=== PATIENT | female | born 1935 | race Caucasian/White ===

== ENCOUNTER 2019-01-03 09:06 | Inpatient (IN) ==
--- NOTE | 2018-12-02 13:59 | Anesthesiology Consultation ---
Date of Service December 02, 2018 Assessment & Plan (1) Encounter for pre-operative examination: Plan: - Possible difficult intubation due to anatomy - PCP= 12/17/18= A1C in 03/2018 was 6.2. PCP states "borderline A1C: monitor perioperative blood sugar.. "cleared" for surgery. Moderate risk for the cardiac event due to age, hx of HTN, BMI of 27." Chart Review Chart Review: Acceptable Risk for Surgery and Patient seen in Pre Admission Testing Teaching & Discussion Pre-Anesthesia Teaching/Discussion Notes: Instructed NPO after midnight before surgery,except medications with 15 cc of water. Medication instructions provided according to the PAT guidelines. History Surgery Operation Date: 01/03/19 12:30 Proposed Procedures p Right Total Knee Arthroplasty - Babar Medley, Height/Weight Height: 5 ft 4 in Weight: 69.1 kg Allergies Allergy/AdvReac Type Severity Reaction Status Date / Time morphine AdvReac Headache Verified 11/29/18 10:07 Medications Home Medications Medication Instructions Recorded Confirmed Last Taken Jarrodophiuslus 1 dose PO QAM 11/29/18 11/29/18 Unknown amitriptyline 25 mg PO HS 11/29/18 11/29/18 Unknown ascorbic acid (vitamin C) [Vitamin 1,000 mg PO QAM 11/29/18 11/29/18 Unknown C] atenolol 50 mg PO QAM 11/29/18 11/29/18 Unknown cholecalciferol (vitamin D3) 2,000 unit PO QAM 11/29/18 11/29/18 Unknown [Vitamin D3] furosemide [Lasix] 20 mg PO DAILY PRN 11/29/18 11/29/18 Unknown levothyroxine 75 mcg PO QAM 11/29/18 11/29/18 Unknown lisinopril 20 mg PO QPM 11/29/18 11/29/18 Unknown lysine 500 mg PO QAM 11/29/18 11/29/18 Unknown magnesium 250 mg PO HS 11/29/18 11/29/18 Unknown multivitamin 1 tab PO QAM 11/29/18 11/29/18 Unknown omeprazole 40 mg PO BID 11/29/18 11/29/18 Unknown prednisone 20 mg PO QAM 11/29/18 11/29/18 Unknown sertraline 50 mg PO QAM 11/29/18 11/29/18 Unknown sucralfate 1 g PO BID 11/29/18 11/29/18 Unknown turmeric root extract 500 mg PO QAM 11/29/18 11/29/18 Unknown Past Medical History Medical History Anemia Anxiety Deep vein thrombosis B/L LE PER PT; UE PER PCP NOTE (2016) S/P ANTICOAGULATION X SHORT PERIOD OF TIME; CURRENT IVC FILTER Depression GERD (gastroesophageal reflux disease) CONTROLLED Hearing deficit History of breast cancer S/P B/L MASTECTOMY History of fall LEFT 7TH/8TH RIB FRACTURES + L1 COMPRESSION FRACTURE S/P MECHANICAL FALL 10/2018- SYMPTOMS SIGNIFICANTLY IMPROVED PER 12/02/18 PAT EVALUATION History of gastric ulcer 2016 Hypertension Hypothyroidism Osteoarthritis PMR (polymyalgia rheumatica) CHRONICALLY ON PREDNISONE 20MG DAILY Poor historian Past Surgical History Surgical History History of appendectomy History of bilateral mastectomy History of breast biopsy History of colonoscopy History of surgery FACIAL NERVE SURGERY X 3 Past Anesthesia History No Hx of Anesthesia Complications and No Family Hx of Anesthesia Complications History of PONV No Motion Sickness Screening History of Motion Sickness: No Social History Smoking Status: Never smoker Do You Dip or Chew Tobacco: No Hx Alcohol Use: No Hx Substance Use: No substance use type: does not use Exercise / Class Metabolic Activity III < 4 Walking/Shop/Light housework (USES WALKER PRN) Review of Systems Patient denies chest pain, shortness of breath, cough, wheezing, palpitations. Physical Exam Vital Signs VITALS BP 126/71 P 70 TEMP 98.7 SP02 95%RA RESP 16 PHYSICAL Full neck and c-spine range of motion. Full TMJ range of motion. TMD 2.5 finger breaths Mallampati Score 4 Dentition: intact Lungs: clear throughout to auscultation Cardiac: regular rate and rhythm, I/ systolic murmur Spine: normal Carotid arteries: negative bruit Extremities: no edema Testing Electrocardiogram Date: 11/21/18 SR at 65bpm. Chest X-Ray Date: 12/02/18 Atherosclerosis of the aortic arch. Cardiac silhouette enlarged. Heterogeneity of lung parenchyma. Lungs and pleural spaces clear. Degenerative changes of the thoracic spine. Multiple old bilateral rib fractures. Anterior wedging deformity of one of the midthoracic vertebral bodies (11/16 mechanical fall injury- PCP treating conservatively). IVC filter in place. Echocardiogram Date: 11/25/18 EF 55-60%. Probably mild cLVH. Mild AI. Poor subendocardial delineation/limited study. Other Testing 48 hour Holter report= 11/25/18= no significant symptomatic tachy or bradyarrhythmias noted. Predominant rhythm sinus rhythm ranging from 45-101 bpm. Small amount of ventricular ectopy 4.2% of the entire recording. Rare SVT. "Asymptomatic." Laboratory Results 12/02/18 14:41 12/02/18 14:41 Blood Type A Positive 12/02/18 14:41 Antibody Screen NEGATIVE 12/02/18 14:41 PT 10.0 Seconds (9.0-12.0) 12/02/18 14:41 INR 1.0 (0.9-1.1) 12/02/18 14:41 APTT 26.4 Seconds (21.0-31.0) 12/02/18 14:41
--- NOTE | 2018-12-02 14:03 | PAT Medication Instructions ---
Medication Instructions Date of Service December 02, 2018 Home Medications Jarrodophiuslus 1 dose PO QAM amitriptyline 25 mg PO HS ascorbic acid (vitamin C) [Vitamin 1,000 mg PO QAM atenolol 50 mg PO QAM cholecalciferol (vitamin D3) 2,000 unit PO QAM furosemide [Lasix] 20 mg PO DAILY PRN levothyroxine 75 mcg PO QAM lisinopril 20 mg PO QPM lysine 500 mg PO QAM magnesium 250 mg PO HS multivitamin 1 tab PO QAM omeprazole 40 mg PO BID prednisone 20 mg PO QAM sertraline 50 mg PO QAM sucralfate 1 g PO BID turmeric root extract 500 mg PO QAM STOP taking 2 weeks before surgery (or as soon as possible if surgery is within 2 weeks) turmeric root extract 500 mg PO QAM DO NOT take the morning of surgery Jarrodophiuslus probiotic 1 dose PO QAM ascorbic acid (vitamin C) [Vitamin 1,000 mg PO QAM cholecalciferol (vitamin D3) 2,000 unit PO QAM furosemide [Lasix] 20 mg PO DAILY PRN lysine 500 mg PO QAM multivitamin 1 tab PO QAM sucralfate 1 g PO BID Take morning of surgery With a small sip of water, OTHERWISE NOTHING TO EAT OR DRINK AFTER MIDNIGHT: atenolol 50 mg PO QAM levothyroxine 75 mcg PO QAM omeprazole 40 mg PO BID prednisone 20 mg PO QAM sertraline 50 mg PO QAM Take evening before surgery amitriptyline 25 mg PO HS furosemide [Lasix] 20 mg PO DAILY PRN (if needed) lisinopril 20 mg PO QPM magnesium 250 mg PO HS omeprazole 40 mg PO BID sucralfate 1 g PO BID Other Notes If you have any questions please call us at [phone] or [phone] or [phone] or [phone]
--- NOTE | 2018-12-02 15:05 | XRay Report ---
XR chest Pre-admission PA/Lat CLINICAL HISTORY: 83 years-old Female presenting with preoperative assessment, asymptomatic. TECHNIQUE: PA and lateral views of the chest were obtained. COMPARISON: None. FINDINGS: Atherosclerosis of the aortic arch. Cardiac silhouette enlarged. Heterogeneity of lung parenchyma. Debra ngs and pleural spaces clear. Degenerative changes of the thoracic spine. Multiple old bilateral rib fractures. Anterior wedging deformity of one of the midthoracic vertebral bodies. IVC filter in place . IMPRESSION: 1. Cardiomegaly. Otherwise no acute cardiopulmonary disease. 2. Age-indeterminate compression deformity of one of the mid thoracic vertebral bodies. Correlate wi th point tenderness. Electronically signed by: Elijah Samson M.D. 12/02/2018 3:04 PM
[2018-12-02 15:15] LABS: Basophils # (auto) 0.01 K/uL (0-0.2); Basophils % (auto) 0.1 %; Hematocrit (blood only) 37.4 % (37-47); Hemoglobin 12.3 g/dL (12.0-16.0); Immature Granulocytes # (auto) 0.03 K/uL (0.00-0.02); Immature Granulocytes % (auto) 0.4 %; Lymphocytes # (auto) 0.71 K/uL (1.2-3.4); Mean Corpuscular Hgb Conc 32.9 g/dL (32-36); Mean Corpuscular Volume 97.9 fL (80-100); Mean Platelet Volume 11.2 fL (7.4-10.4); Monocytes # (auto) 0.36 K/uL (0.11-0.59); Monocytes % (auto) 4.6 %; Neutrophils # (auto) 6.76 K/uL (1.4-6.5); Neutrophils % (auto) 85.9 %; Platelet Count 202 K/uL (130-400); RDW Coefficient of Variation 13.5 % (11.5-14.5); RDW Standard Deviation 48.5 fL (36.4-46.3); Red Blood Count 3.82 M/uL (4.2-5.4); White Blood Count 7.87 K/uL (4.8-10.8)
[2018-12-02 15:22] LABS: BUN Creatinine Ratio 21.9 (10-20); Calcium 8.8 mg/dl (8.5-10.1); Creatinine Clr Calc Pharmacy 46.2 ml/min; Est GFR (African American) 72.4; Est GFR (Non-African American) 62.5; Potassium 4.3 mmol/L (3.5-5.1)
[2018-12-02 15:24] LABS: Partial Thromboplastin Time 26.4 Seconds (21.0-31.0)
--- NOTE | 2019-01-02 20:56 | History & Physical Report ---
Date of Service January 02, 2019 Assessment & Plan (1) Osteoarthritis of right knee: We will proceed with a right total knee arthroplasty. She does have an IVC filter placed for blood clots in her legs. She is unable to take any anticoagulants because of peptic ulcer disease. She is aware of the risks with the procedure. Will use mechanical DVT prophylaxis postoperatively. She will be kept in the hospital for postoperative medical management. She would like to be discharged to an inpatient rehab facility. Present on Admission?: Yes History of Present Illness Chief Complaint: Primary osteoarthritis of the right knee Primary Care Provider: Deobrah RashadBrandon Oj Alvarez is a pleasant 83-year-old female from the [facility]. She has been having chronic increasing right knee pain. She has a very difficult time ambulating because of her knee and it is really affecting her quality of life. We have talked extensively about knee replacement surgery with her and her family. We talked mostly about her age and the risks of the procedure. Her knee pain is affecting her quality of life enough that she would like to proceed. Allergies Allergy/AdvReac Type Severity Reaction Status Date / Time morphine AdvReac Headache Verified 11/29/18 10:07 Home Medications Home Medications Medication Instructions Recorded Confirmed Type Jarrodophiuslus 1 dose PO QAM 11/29/18 11/29/18 History amitriptyline 25 mg PO HS 11/29/18 11/29/18 History ascorbic acid (vitamin C) [Vitamin 1,000 mg PO QAM 11/29/18 11/29/18 History C] atenolol 50 mg PO QAM 11/29/18 11/29/18 History cholecalciferol (vitamin D3) 2,000 unit PO QAM 11/29/18 11/29/18 History [Vitamin D3] furosemide [Lasix] 20 mg PO DAILY PRN 11/29/18 11/29/18 History levothyroxine 75 mcg PO QAM 11/29/18 11/29/18 History lisinopril 20 mg PO QPM 11/29/18 11/29/18 History lysine 500 mg PO QAM 11/29/18 11/29/18 History magnesium 250 mg PO HS 11/29/18 11/29/18 History multivitamin 1 tab PO QAM 11/29/18 11/29/18 History omeprazole 40 mg PO BID 11/29/18 11/29/18 History prednisone 20 mg PO QAM 11/29/18 11/29/18 History sertraline 50 mg PO QAM 11/29/18 11/29/18 History sucralfate 1 g PO BID 11/29/18 11/29/18 History turmeric root extract 500 mg PO QAM 11/29/18 11/29/18 History Past Med/Surg History Medical History Anemia Anxiety Deep vein thrombosis B/L LE PER PT; UE PER PCP NOTE (2016) S/P ANTICOAGULATION X SHORT PERIOD OF TIME; CURRENT IVC FILTER Depression GERD (gastroesophageal reflux disease) CONTROLLED Hearing deficit History of breast cancer S/P B/L MASTECTOMY History of fall LEFT 7TH/8TH RIB FRACTURES + L1 COMPRESSION FRACTURE S/P MECHANICAL FALL 10/2018- SYMPTOMS SIGNIFICANTLY IMPROVED PER 12/02/18 PAT EVALUATION History of gastric ulcer 2016 Hypertension Hypothyroidism Osteoarthritis PMR (polymyalgia rheumatica) CHRONICALLY ON PREDNISONE 20MG DAILY Poor historian Surgical History History of appendectomy History of bilateral mastectomy History of breast biopsy History of colonoscopy History of surgery FACIAL NERVE SURGERY X 3 Social History Preferred Language: Azerbaijani Communication Ability: Effective Pony Roll Finisher Required: No Beliefs That Will Affect Care: Judaism Current Living Situation Comment: [facility] Other Information That Helps Us Care for You: No Feels Safe at Home: Yes Safety Concerns: Feels Safe At This Time Smoking Status: Never smoker Hx Alcohol Use: No Hx Substance Use: No Review of Systems All systems reviewed & are unremarkable except as noted in HPI & below Physical Exam 2 Constitutional: WD/WN, vitals as above Eyes: PERRL, conjunctivae normal, anicteric sclerae ENMT: external ear and nose normal, oropharynx normal Neck: trachea midline, no thyromegaly Respiratory: normal respiratory effort Cardiovascular: RRR, no murmur, no edema Gastrointestinal (Abdomen): normal bowel sounds, soft, nontender, no hepatosplenomegaly Musculoskeletal: On physical examination of the right knee there is a trace effusion. There is near full range of motion and no evidence of instability. There is significant tenderness palpation along the medial and lateral joint lines and over the distal femoral condyles. Psychiatric: A+Ox3, euthymic affect Results & Data Diagnostic Findings Radiographs of the right knee demonstrate advanced osteoarthritis with joint space narrowing osteophyte formation and [id number] articulation.
[~2019-01-03 09:06] MED LIST: ACETAMINOPHEN 500 MG TAB PO SCH; BUPIVACAINE 0.5 % 5 MG/1 ML PF 10ML VIAL ONE; CEFAZOLIN 2000MG 2,000 MG/15 ML SYR IV SCH; FAMOTIDINE 20 MG TAB PO SCH; GABAPENTIN 300 MG PO SCH; LR 500ML BOLUS, THEN 15ML/HR IV SCH; LR 60ML/HR IV SCH; ROPIVACAINE 0.5% 5 MG/ML 30 ML VIAL ONE; ROPIVACAINE 0.5% HCL/PF 150 MG, BUPIVACAINE 0.5% MPF 30 ML, EPINEPHrine 30MG/30ML (OR U... INFIL SCH; TRANEXAMIC ACID 1,000 MG **IV Pre-op IV SCH
--- NOTE | 2019-01-03 09:47 | History & Physical Bridge Note ---
Date of Service January 03, 2019 History & Physical Bridge Note I have examined the patient, reviewed the History & Physical and in the interval since the performance of the History & Physical I have noted the following changes of clinical significance: no changes noted
[2019-01-03] MEDS ORDERED: ORTHO JOINT ANESTHETIC ONE (10:19)
[2019-01-03] MEDS ORDERED: POVIDONE-IODINE OP SOLN 30 ML BTL ONE (10:19)
[2019-01-03] MEDS ORDERED: MIDAZOLAM HCL 1 MG/ML 2ML VIAL ONE ×2 (11:07→11:08)
[2019-01-03] MEDS: TRANEXAMIC ACID 1,000 MG **IV Intra-op IV SCH (11:33)
--- NOTE | 2019-01-03 12:47 | Operative Report ---
Post Operative Report Pre & Post Diagnosis Operation Date: 01/03/19 11:30 Pre-Op Diagnosis: Right Knee Degenerative Joint Disease Post-Op Diagnosis: Right Knee Degenerative Joint Disease Procedure Operation Date: 01/03/19 11:30 Actual Procedures p Right Total Knee Arthroplasty, Cemented(Right) - Babar Medley DO Surgeon Babar Medley DO Family Intervention Specialist Babar Barry PAC Estimated Blood Loss 20 Findings Consistent with Post-Op Diagnosis Specimens Right femoral and tibial bone Complications none Disposition Disposition: Recovery Room Indications Kim is a pleasant 83-year-old female who is been dealing with chronic increasing right knee pain. X-rays and clinical examination have been diagnostic for primary osteoarthritis of the right knee. Her knee pain has been debilitating. She is been downgraded to a wheelchair because of the knee. After extensive discussions with her and her family regarding her age, she elected to proceed with a right total knee arthroplasty. Description of Procedure Implants used: I used a [employer] Vanguard total knee arthroplasty system with a size 70 femur, 67 tibia, 28 patella, and a size 10 PS plus polyethylene bearing. All components were cemented in place with Palacos G cement. The patient arrived [facility] for the above procedure. There were seen in the preoperative holding area and the operative extremity was identified and signed. There were given a preoperative antibiotic, a spinal anesthetic and an adductor nerve block. There were taken back to the operating room and laid on the table in supine position. There were given basic sedation. The operative knee was then prepped and draped in sterile fashion. A timeout was done, and the patient and the operative extremity was properly identified. A midline incision was made directly over the patella. Dissection was taken down to the extensor mechanism. A subvastus arthrotomy was used. The medial retinaculum was released and the fat pad was mostly left intact. The knee was flexed and the ACL, PCL, and meniscus were removed. A drill was sent down the center of the femoral canal followed by an intramedullary ghazala. Off that ghazala a distal femoral cutting block was placed. 9 mm was resected off the distal femur at 5 of valgus. A posterior referencing AP sizing guide was then placed on the distal femur. The femur measured to be a size 70. 2 drill holes were placed in 3 of external rotation. A 4-in-1 cutting block was then impacted into place. Anterior posterior and chamfer cuts were then made. The posterior stabilizing box guide was then impacted into place and the box was resected for the posterior stabilizing component. The proximal tibia was then exposed. A drill was sent down the center of the tibial canal followed by an intramedullary ghazala. Off that ghazala a proximal tibial resection guide was placed. The proximal tibia was then resected. The tibia measured to be a size 67. The tibial plate was then placed in the appropriate rotation and the tibia was punched. The posterior aspect of the knee was then opened up and any additional meniscus fragments and osteophytes were removed. Trial components were then placed. I used a size 10 PS plus polyethylene insert. The knee was brought through a full range of motion and felt to be stable. The patella was then everted and 8 mm was resected off the posterior aspect of the patella. The patella measured to be a size 28. 3 peg holes were then drilled. A trial patella was placed. The knee was once again brought through a full range of motion and felt to be stable. Trial components were then removed. The surrounding soft tissues were injected with 100 cc of an orthopedic pain control cocktail. All components were then cemented into place with Palacos G cement. The final polyethylene insert was then snapped into place and the anterior bar was locked. Once cement was dry the tourniquet was deflated. Hemostasis was obtained. A dilute betadyne lavage was then done for 3 minutes. The joint was then irrigated with normal saline solution. The subvastus arthrotomy was then closed with #1 Vicryl suture. The skin was closed with 2-0 Vicryl, 3-0V lock suture, and amira. A soft compressive dressing was placed. The patient was then transferred to a hospital bed and taken to the postanesthesia care unit in stable condition. They tolerated the procedure well. I attest to the content of the Intraoperative Record and any orders documented therein. Any exceptions are noted below.
--- NOTE | 2019-01-03 13:45 | XRay Report ---
XR knee RT 2V routine CLINICAL HISTORY: Surgical Post Op postoperative evaluation COMPARISON: None. DISCUSSION: Anatomic alignment post total right knee arthroplasty. Good contact between prosthetic an d underlying bone. Expected soft tissue postoperative change. IMPRESSION: Anatomic alignment post total right knee arthroplasty. The above report was generated using voice recognition software. It may contain grammatical, syntax or spelling errors. Electronically signed by: Romaine Alfaro M.D. 01/03/2019 1:44 PM
--- NOTE | 2019-01-03 13:55 | Anesthesiology Progress Note ---
Date of Service January 03, 2019 Anesthesia Post Procedure Vital Signs Vital Signs: Temp Pulse Pulse Resp BP Pulse Ox 01/03/19 13:50 60 15 119/56 L 98 01/03/19 13:40 36.3 C L 59 L 15 119/59 L 98 01/03/19 13:30 57 L 14 125/58 L 100 01/03/19 13:20 59 L 15 141/60 H 100 01/03/19 13:14 36.3 C L 62 16 156/73 H 100 01/03/19 10:27 37 C 56 L 20 151/54 H 97 Pain Intensity Right Knee: Pain Intensity: 7 Notes Mental Status: alert / awake / arousable and participated in evaluation Patient Amnestic to Procedure: Yes Nausea / Vomiting: adequately controlled Pain: adequately controlled Airway Patency, RR, SpO2: stable & adequate BP & HR: stable & adequate Hydration State: stable & adequate Neuraxial Anesthesia: was administered and sensory block is resolving Anesthetic Complications: no major complications apparent
[2019-01-03] MEDS ORDERED: HYDROmorphone INJ 0.5 MG/0.5 ML SYR IV PRN (14:34)
[2019-01-03] MEDS ORDERED: METOCLOPRAMIDE HCL INJ 5 MG/ML 2 ML VIAL IV PRN (14:34)
[2019-01-03] MEDS ORDERED: ONDANSETRON INJ 2 MG/ML 2 ML VIAL IV PRN (14:34)
[2019-01-03] MEDS ORDERED: BISACODYL 10 MG SUPP PR PRN (14:34)
[2019-01-03] MEDS ORDERED: NALOXONE HCL 0.4 MG/1 ML VIAL/CARP IV PRN (14:34)
[2019-01-03] MEDS ORDERED: MAGNESIUM HYDROXIDE SUSP 30 ML UDC PO PRN (14:34)
[2019-01-03] MEDS: SODIUM CHLORIDE 0.9% 1000ML 1,000 ML IV SCH ×2 (14:42→23:36)
[2019-01-03] MEDS ORDERED: FUROSEMIDE 20 MG TAB PO PRN (15:00)
[2019-01-03] MEDS: ACETAMINOPHEN 500 MG TAB PO SCH ×2 (15:53→22:32)
[2019-01-03] MEDS: CEFAZOLIN 1000MG 1,000 MG/7.5 ML SYR IV SCH (19:41)
[2019-01-03] MEDS: PANTOprazole 40 MG TAB PO SCH (20:39)
[2019-01-03] MEDS: SENNA 8.6 MG TAB PO SCH (20:39)
[2019-01-03] MEDS: AMITRIPTYLINE HCL 25 MG TAB PO SCH (20:39)
[2019-01-03] MEDS: DOCUSATE SODIUM 100 MG CAP PO SCH (20:39)
[2019-01-03] MEDS: LISINOPRIL 20 MG TAB PO SCH (20:40)
[2019-01-04] MEDS: CEFAZOLIN 1000MG 1,000 MG/7.5 ML SYR IV SCH (03:33)
[2019-01-04 06:02] LABS: Hematocrit (blood only) 30.3 % (37-47); Hemoglobin 9.9 g/dL (12.0-16.0); Mean Corpuscular Hgb Conc 32.7 g/dL (32-36); Mean Corpuscular Volume 96.5 fL (80-100); Mean Platelet Volume 11.2 fL (7.4-10.4); Platelet Count 172 K/uL (130-400); RDW Coefficient of Variation 13.5 % (11.5-14.5); Red Blood Count 3.14 M/uL (4.2-5.4); White Blood Count 14.22 K/uL (4.8-10.8)
[2019-01-04] MEDS: ACETAMINOPHEN 500 MG TAB PO SCH ×3 (06:02→21:28)
[2019-01-04] MEDS: LEVOTHYROXINE SODIUM 75 MCG TABLET PO SCH (06:02)
[2019-01-04 06:34] LABS: BUN Creatinine Ratio 26.8 (10-20); Calcium 7.7 mg/dl (8.5-10.1); Creatinine Clr Calc Pharmacy 51.4 ml/min; Est GFR (African American) 82.9; Est GFR (Non-African American) 71.5; Potassium 3.9 mmol/L (3.5-5.1)
[2019-01-04] MEDS: MULTIVITAMIN TAB PO SCH (08:56)
[2019-01-04] MEDS: PANTOprazole 40 MG TAB PO SCH ×2 (08:56→20:44)
[2019-01-04] MEDS: DOCUSATE SODIUM 100 MG CAP PO SCH ×2 (08:56→20:43)
[2019-01-04] MEDS: predniSONE 20 MG TAB PO SCH (08:56)
[2019-01-04] MEDS: SERTRALINE HCL 50 MG TABLET PO SCH (08:57)
[2019-01-04] MEDS: ATENOLOL 50 MG TABLET PO SCH (08:57)
--- NOTE | 2019-01-04 09:16 | Orthopedic Progress Note ---
Date of Service January 04, 2019 Assessment & Plan (1) Osteoarthritis of right knee: Overall she is doing very well. She is not on any medication for DVT prophylaxis because she has an IVC filter. She is on mechanical prophylaxis with ROSETTE hose stockings and SCDs. She will be seen by physical therapy today for ambulation. She is planning to go to a rehab facility upon discharge. She should be orthopedically stable for discharge tomorrow but she will likely leave on Sunday. Present on Admission?: Yes Bear Alvarez was seen and examined at bedside this morning. Overall she is doing very well. She is not having much pain in the knee. She has only been ambulating to the bathroom. She was able to get some sleep last night. She has no complaints. Physical Exam Vital Signs (Past 24 Hours): Last Vital Signs Temp 36.9 C 01/04/19 06:54 Pulse 74 01/04/19 08:52 Resp 18 01/04/19 06:54 BP 124/62 01/04/19 08:52 Pulse Ox 96 01/04/19 06:54 Musculoskeletal: On physical examination of the right knee, the dressing is clean and dry. She sit in a chair at bedside. She is very weak dorsiflexion of her ankle at this point and a little bit of numbness on her foot. This is likely still from the block. Results & Data Laboratory Results H & H 12/02/18 01/04/19 Range/Units 14:41 05:28 Hgb 12.3 9.9 L (12.0-16.0) g/dL Hct 37.4 30.3 L (37-47) % Coagulation 12/02/18 Range/Units 14:41 INR 1.0 (0.9-1.1) Diagnostic Findings Postoperative x-rays of the right knee show the prosthesis to be in anatomic alignment without any evidence of fracture, dislocation, or loosening.
[2019-01-04] MEDS: TRAMADOL HCL 50 MG TABLET PO PRN ×2 (11:44→19:34)
--- NOTE | 2019-01-04 13:23 | Anesthesiology Progress Note ---
Date of Service January 04, 2019 Anesthesia Post Procedure Vital Signs Vital Signs: Temp Pulse Pulse Pulse Pulse Resp BP 01/04/19 10:57 37.0 C 49 L 18 109/48 L 01/04/19 08:52 74 124/62 01/04/19 06:54 36.9 C 65 18 125/67 01/04/19 03:35 36.6 C 67 14 116/65 01/03/19 23:03 36.5 C 61 14 112/53 L 01/03/19 22:04 74 01/03/19 15:34 36.5 C 59 L 17 119/58 L 01/03/19 14:45 36.6 C 60 14 132/80 01/03/19 14:15 36.4 C L 60 14 142/58 H 01/03/19 14:05 63 15 111/58 L 01/03/19 13:50 60 15 119/56 L 01/03/19 13:40 36.3 C L 59 L 15 119/59 L 01/03/19 13:30 57 L 14 125/58 L Pulse Ox 01/04/19 10:57 93 01/04/19 08:52 01/04/19 06:54 96 01/04/19 03:35 96 01/03/19 23:03 96 01/03/19 22:04 96 01/03/19 15:34 100 01/03/19 14:45 100 01/03/19 14:15 99 01/03/19 14:05 99 01/03/19 13:50 98 01/03/19 13:40 98 01/03/19 13:30 100 Pain Intensity Right Knee: Pain Intensity: 7 Notes Mental Status: alert / awake / arousable Patient Amnestic to Procedure: Yes Nausea / Vomiting: adequately controlled Pain: adequately controlled Airway Patency, RR, SpO2: stable & adequate BP & HR: stable & adequate Hydration State: stable & adequate Neuraxial Anesthesia: was administered and sensory block resolved Anesthetic Complications: no major complications apparent and Pt Satisfied with anesthetic care
[2019-01-04] MEDS: SENNA 8.6 MG TAB PO SCH (20:42)
[2019-01-04] MEDS: LISINOPRIL 20 MG TAB PO SCH (20:42)
[2019-01-04] MEDS: AMITRIPTYLINE HCL 25 MG TAB PO SCH (20:43)
[2019-01-05] MEDS: LEVOTHYROXINE SODIUM 75 MCG TABLET PO SCH (06:09)
[2019-01-05] MEDS: ACETAMINOPHEN 500 MG TAB PO SCH ×3 (06:09→21:18)
[2019-01-05] MEDS: TRAMADOL HCL 50 MG TABLET PO PRN ×2 (08:42)
[2019-01-05] MEDS: predniSONE 20 MG TAB PO SCH (08:44)
[2019-01-05] MEDS: SERTRALINE HCL 50 MG TABLET PO SCH (08:44)
[2019-01-05] MEDS: DOCUSATE SODIUM 100 MG CAP PO SCH ×2 (08:44→21:16)
[2019-01-05] MEDS: MULTIVITAMIN TAB PO SCH (08:44)
[2019-01-05] MEDS: PANTOprazole 40 MG TAB PO SCH ×2 (08:44→21:17)
[2019-01-05] MEDS: ATENOLOL 50 MG TABLET PO SCH (08:49)
--- NOTE | 2019-01-05 09:12 | Orthopedic Progress Note ---
Date of Service January 05, 2019 Assessment & Plan (1) Osteoarthritis of right knee: Overall she is doing about as well as expected. I want her to continue to ambulate today with physical therapy. She is on tramadol for pain control. She is not on any pharmacological DVT prophylaxis because of contraindications and because of an IVC filter placement. We plan to [facility] tomorrow. Present on Admission?: Yes Subjective Kim was seen and examined at bedside this morning. Overall she is doing fairly well. She is been ambulating with physical therapy. She does not have too much pain in the right knee. She has no complaints. Physical Exam Vital Signs (Past 24 Hours): Last Vital Signs Temp 37.4 C 01/05/19 06:50 Pulse 66 01/05/19 08:46 Resp 18 01/05/19 06:50 BP 112/53 L 01/05/19 08:46 Pulse Ox 95 01/05/19 06:50 Musculoskeletal: On physical examination of the right knee, the dressing has been changed. There is a ROSETTE hose stockings in place. She is active dorsiflexion plantarflexion of the right ankle. Sensation is intact throughout.
[2019-01-05] MEDS: SENNA 8.6 MG TAB PO SCH (21:17)
[2019-01-05] MEDS: LISINOPRIL 20 MG TAB PO SCH (21:17)
[2019-01-05] MEDS: AMITRIPTYLINE HCL 25 MG TAB PO SCH (21:17)
[2019-01-06] MEDS: ACETAMINOPHEN 500 MG TAB PO SCH (05:59)
[2019-01-06] MEDS: LEVOTHYROXINE SODIUM 75 MCG TABLET PO SCH (05:59)
[2019-01-06] MEDS: PANTOprazole 40 MG TAB PO SCH (08:46)
[2019-01-06] MEDS: predniSONE 20 MG TAB PO SCH (08:46)
[2019-01-06] MEDS: DOCUSATE SODIUM 100 MG CAP PO SCH (08:46)
[2019-01-06] MEDS: MULTIVITAMIN TAB PO SCH (08:46)
[2019-01-06] MEDS: ATENOLOL 50 MG TABLET PO SCH (08:46)
[2019-01-06] MEDS: SERTRALINE HCL 50 MG TABLET PO SCH (08:47)
--- NOTE | 2019-01-06 14:42 | Progress Note ---
DATE: 01/06/2019 SUBJECTIVE: The patient was sitting in a chair by bedside this morning. She had no complaints of any pain. She has been up ambulating and walking without difficulty. She has no complaints at this time. OBJECTIVE: EXTREMITIES: The dressing is clean. It is dry. There are ROSETTE hose stockings in place. She has active dorsiflexion, plantar flexion of the right ankle. Sensation is intact throughout her right and left lower extremities. Good capillary refill. CURRENT VITAL SIGNS: Blood pressure is 120/65, pulse is 79, respiratory rate 18 breaths per minute, temperature is 36.9, O2 sats is 96% on room air. ASSESSMENT: Postop day number 3 total right knee arthroplasty. PLAN: Overall, she is doing very well. We [facility] today. Continue with her current pain medication for pain control. Continue with ROSETTE hose stockings. We have not prescribed any pharmacological DVT prophylaxis due to contraindication and she has her IVC filter placement. Plan on seeing her in the office 10-12 days postoperatively for staple removal and assessment at that point.
--- NOTE | 2019-01-07 10:40 | Discharge Summary ---
Date of Service January 20, 2019 Admission HPI Per Admitting Provider Kim is a pleasant 83-year-old female from the [facility]. She has been having chronic increasing right knee pain. She has a very difficult time ambulating because of her knee and it is really affecting her quality of life. We have talked extensively about knee replacement surgery with her and her family. We talked mostly about her age and the risks of the procedure. Her knee pain is affecting her quality of life enough that she would like to proceed. Discharge Data Consultations 01/03/19 14:34 Consult Case Management - Discharge Planning Routine Procedures Performed Operation Date: 01/03/19 11:30 Actual Procedures p Right Total Knee Arthroplasty, Cemented(Right) - Babar Medley, DO
--- NOTE | 2019-01-17 07:00 | Discharge Summary ---
Date of Service January 17, 2019 Admission HPI Per Admitting Provider Kim is a pleasant 83-year-old female from the [facility]. She has been having chronic increasing right knee pain. She has a very difficult time ambulating because of her knee and it is really affecting her quality of life. We have talked extensively about knee replacement surgery with her and her family. We talked mostly about her age and the risks of the procedure. Her knee pain is affecting her quality of life enough that she would like to proceed. Specialty Data Orthopedic H & H 12/02/18 01/04/19 Range/Units 14:41 05:28 Hgb 12.3 9.9 L (12.0-16.0) g/dL Hct 37.4 30.3 L (37-47) % Coagulation 12/02/18 Range/Units 14:41 INR 1.0 (0.9-1.1) Discharge Data Consultations 01/03/19 14:34 Consult Case Management - Discharge Planning Routine Procedures Performed Operation Date: 01/03/19 11:30 Actual Procedures p Right Total Knee Arthroplasty, Cemented(Right) - Babar Medley DO Hospital Course (1) Osteoarthritis of right knee: On January 03, 2019 Kim arrived at [facility] and underwent a right total knee arthroplasty without complication. Postoperatively she was discharged to general orthopedic floors. She had an IVC filter placement and was not started on any anticoagulation due to multiple contraindications. Overall her hospital course was uneventful. On postop day #1 her H&H was stable and her pain was well controlled. She was taken tramadol for the pain. She was seen by physical therapy and was able to ambulate. On postop day #2 she continued to do fairly well. The dressing was changed and the incision was clean and dry. She continued to participate fairly well with physical therapy. Because of her age she was a little bit slow to progress. On postop day #3 she was doing better. A bed was available at a custodial facility up in the [facility]. She was then discharged. She will follow-up with orthopedics in 2 weeks. Discharge Instructions Home Medications Medication Instructions Recorded Confirmed Jarrodophiuslus 1 dose PO QAM 11/29/18 01/03/19 amitriptyline 25 mg PO HS 11/29/18 01/03/19 ascorbic acid (vitamin C) [Vitamin 1,000 mg PO QAM 11/29/18 01/03/19 C] atenolol 50 mg PO QAM 11/29/18 01/03/19 cholecalciferol (vitamin D3) 2,000 unit PO QAM 11/29/18 01/03/19 [Vitamin D3] furosemide [Lasix] 20 mg PO DAILY PRN 11/29/18 01/03/19 levothyroxine 75 mcg PO QAM 11/29/18 01/03/19 lisinopril 20 mg PO QPM 11/29/18 01/03/19 lysine 500 mg PO QAM 11/29/18 01/03/19 magnesium 250 mg PO HS 11/29/18 01/03/19 multivitamin 1 tab PO QAM 11/29/18 01/03/19 omeprazole 40 mg PO BID 11/29/18 01/03/19 prednisone 20 mg PO QAM 11/29/18 01/03/19 sertraline 50 mg PO QAM 11/29/18 01/03/19 sucralfate 1 g PO BID 11/29/18 01/03/19 turmeric root extract 500 mg PO QAM 11/29/18 01/03/19 Previous Rx's Medication Instructions Recorded tramadol 50 - 100 mg PO Q4H PRN #40 tab 01/05/19
== END 2019-01-06 11:12 | DRG 470 ==
LOC: ASU 09:06 → 3E 11:27